=== PATIENT | female | born 1980 | race Caucasian/White ===

== ENCOUNTER → 2018-08-16 | Outpatient (CLI) | payer OTHER ==
--- NOTE | 2018-08-16 14:13 | RAD ---
Duplex ultrasound evaluation of renal arteries 08/16/2018 INDICATION: Hypertension COMPARISON STUDY: None FINDINGS: Ultrasound evaluation the renal arteries is performed including color Doppler imaging spectral analysis. Visualized aorta infiltrates mild atherosclerotic vascular disease. Somewhat advanced for patient age. Abdominal aorta is normal in course and caliber. Limited visualization of the bladder is unremarkable. Left kidney is normal in morphology measuring 11.6 cm in length. The right kidney is normal in morphology measuring 11.8 cm in length. No hydronephrosis, nephrolithiasis, or focal renal lesions are identified. Visualized renal veins are patent. Peak systolic velocity of the aorta at the level the renal arteries is 118 cm/s Peak systolic velocity within the renal artery on the right is measured at 190 cm/s. Distal measurements felt to be unreliable. Renal aortic ratio 1.7. Peak systolic velocity, left renal artery 84 cm/s. Renal aortic ratio 0.7 IMPRESSION: Mildly elevated velocity right renal artery. Renal aortic ratio is within normal limits. Hemodynamically significant stenosis not excluded by ultrasound. Consider CT angiography for further evaluation as clinically indicated. Electronically signed by: Valdez Edmond MD (08/16/2018 2:09 PM) [id number]
== END | disposition home or self-care (01) ==
LOC: US 12:58
PROVIDERS: ATTEND Registered Nurse
DX: I70.0 Atherosclerosis of aorta (principal); I10 Essential (primary) hypertension
CPT/HCPCS: 76770

== ENCOUNTER → 2018-11-17 | Outpatient (CLI) | payer OTHER ==
--- NOTE | 2018-11-17 13:36 | RAD ---
2 views left knee 11/17/2018 12:00 AM Indication: Trauma, injured at work 2 weeks ago Comparison: None Findings: No fracture or dislocation is identified. Articular surfaces are uninterrupted. Medial and lateral compartment osteophytosis is noted. There is medial compartment narrowing with minimal medial translation of the distal femur with respect to the tibia. No acute soft tissue changes are seen. IMPRESSION: Degenerative changes of the left knee as described without evidence of acute osseous abnormality. Electronically signed by: Valdez Edmond MD (11/17/2018 1:33 PM) [id number]
== END | disposition home or self-care (01) ==
LOC: PMG 11:04
PROVIDERS: ATTEND Registered Nurse
DX: M17.12 Unilateral primary osteoarthritis, left knee (principal); M25.862 Other specified joint disorders, left knee; M25.762 Osteophyte, left knee
CPT/HCPCS: 73560

== ENCOUNTER → 2021-03-20 | Outpatient (CLI) | payer OTHER ==
--- NOTE | 2021-03-20 16:11 | RAD ---
Digital Mammogram Bilateral History: Routine screening Technique: 2-D digital CC and MLO views were obtained. CAD - computer aided detection was utilize d. Comparison: None. This is a baseline exam. Findings: Breast Tissue Density B : There are scattered areas of fibroglandular density On the right MLO view there is asymmetry in the axillary tail region. On the left CC image, there is an oval asymmetry in the outer right breast slightly lateral to the ni pple line, about 4 cm from the nipple. There is a tiny oval mass outer left breast at posterior depth on the CC view about 11.5 cm from the nipple. There are no malignant appearing calcifications, or ar eas of architectural distortion. Impression: There are asymmetries in the right axillary tail region and in the left outer breast. Further evaluat ion with a diagnostic 3-D mammogram, and if areas of interest persist targeted bilateral breast ultra sound, is recommended. Assessment: BI-RADS Category 0. Incomplete. Additional imaging is recommended. Recommendation: Diagnostic bilateral 3-D mammogram and if needed, targeted bilateral breast ultrasoun d.. The patient will be notified of results and asked to schedule for additional imaging. The patient nathalie l receive a letter with the results in the mail. Patient information will be entered into the mammogr [employer] reminder system with a target recall date for the next mammogram. A reminder letter will be gene rated. Electronically signed by: Mary Melo MD (03/20/2021 4:09 PM) [id number]
== END ==
LOC: MAMMO 11:17
PROVIDERS: ATTEND Physician Assistant
DX: Z12.31 Encounter for screening mammogram for malignant neoplasm of breast (principal)
CPT/HCPCS: 77067